=== PATIENT | male | born 1995 | race Asian ===

== ENCOUNTER 2021-01-03 08:14 | Outpatient (REF) | payer BC, SELFPAY ==
[2021-01-03 11:41] LABS: HIV AB/AG Nonreactive (Nonreactive); HIV Num 1 0.09 S/CO (0.00-0.99); Hepatitis B Surface Antigen Negative (Negative)
[2021-01-03 11:44] LABS: TSH reflex Free T4 1.95 uIU/mL (0.32-4.0)
[2021-01-03 11:45] LABS: Alanine Aminotransferase 23 U/L (0-40); Albumin Level 4.9 g/dL (3.5-5.0); Alkaline Phosphatase 43 U/L (39-117); Anion Gap 13 (12-20); Aspartate Amino Transferase 25 U/L (5-37); Blood Urea Nitrogen 13 mg/dL (9-16); Calcium 9.4 mg/dL (8.4-10.2); Carbon Dioxide 27 mmol/L (22-29); Chloride 104 mmol/L (96-108); Cholesterol 173 mg/dL; Estimated Glomerular Filt Rate > 60; Glucose Fasting 91 mg/dL (60-99); HDL Cholesterol 65 mg/dL; LDL Cholesterol Calculated 97 mg/dl; Potassium 4.4 mmol/L (3.3-5.1); Sodium 140 mmol/L (135-145); Total Protein 7.6 g/dL (6.5-8.0); Triglycerides 58 mg/dL
[2021-01-03 11:46] LABS: HBc Num1 0.09 S/CO (0.00-0.79); Hepatitis B Core Antibody Nonreactive (Nonreactive); ~Hepatitis B Surface Antibody NONREACTIVE (Nonreactive); ~Hepatitis C Antibody Nonreactive (Nonreactive)
[2021-01-04 09:02] LABS: Syphilis Screen Nonreactive (Nonreactive)
[2021-01-04 09:45] LABS: CT PCR NOT DETECTED (Not Detect.); NG PCR NOT DETECTED (Not Detect.)
== END 2021-01-03 08:15 | disposition home or self-care (01) ==
LOC: HO.WFDLDS 08:14
PROVIDERS: Visit Provider Family Medicine
DX: Z00.00 Encounter for general adult medical examination without abnormal findings (principal); Z11.3 Encounter for screening for infections with a predominantly sexual mode of transmission
CPT/HCPCS: 80053; 80061; 84443; 86704; 86706; 86780; 86803; 87340; 87389; 87491; 87591

== ENCOUNTER → 2021-02-28 13:49 | Outpatient (REF) | payer BC, SELFPAY ==
--- NOTE | 2021-02-28 14:01 | CA_ITS ---
Transthoracic Echocardiogram Patient (Last, First, Middle): Tom Luong, Gender: Male Date of : 1995 Age: 25 Procedure Date: 02/28/2021 Procedure Type: Transthoracic Echocardiogram Location: OP Height: 175.26 cm Weight: 63.5 kg BSA: 1.78 m2 Heart Rate: bpm BP: 119 / 64 mmHg Wind Technician: [email or web address] Referring MD: Ramesh Glass MD Symptoms: R01.1 - Cardiac murmur, unspecified Conclusions: - The left ventricular systolic function is normal. The visually estimated ejection fraction is between 60-65%. - No obvious valvular pathology seen on this study. Findings Left Ventricle Normal left ventricular cavity size. There is normal left ventricular wall thickness. The left ventricular systolic function is normal. The visually estimated ejection fraction is between 60-65%. There is no evidence of regional wall motion abnormalities. Diastolic function is normal for age. Right Ventricle Normal right ventricular cavity size and systolic function. Atria The left atrium is normal in size. The right atrium is normal in size. Aortic Valve There is a normal trileaflet aortic valve. There is no aortic valve stenosis. There is no aortic valve regurgitation. Mitral Valve The mitral valve appears normal. There is no mitral valve regurgitation. There is no mitral valve stenosis. Pulmonic Valve The pulmonic valve was not well visualized. Tricuspid Valve Normal tricuspid valve structure. There is trace tricuspid valve regurgitation. The pulmonary artery systolic pressure is normal. Great Vessels The aortic annulus, sinuses of valsalva, asc aorta, and aortic arch are normal in size. Venous The inferior vena cava is normal in size and collapses greater than 50% with inspiration. Pericardium/Pleural There is no evidence of pericardial effusion. Prior Study Comparison No prior study available for comparison. Recommendations, Care & Conclusions No obvious valvular pathology seen on this study. Measurements M-Mode Liner Measurements Normals - Women/Men AOV Cusps: 2.20 1.5-2.6 cm/m2 2D Linear Measurements IVSd: 0.64 0.6-0.9/0.6-1.0 cm LVIDd: 4.58 3.9-5.3/4.2-5.9 cm LVIDd Index: 2.57 2.4-3.2/2.2-3.1 cm/m2 LVIDs: 2.74 2.0-3.6 cm LVPWd: 0.64 0.7-1.1 cm Ao Root: 2.70 2.1-3.5 cm LA Diam: 1.90 2.7-3.8/3.0-4.0 cm LAIDs Index: 1.07 1.5-2.3 cm/m2 LV Mass: 108.72 67-162/88-224 g LV Mass Index: 61.08 43-95/49-115 g/m2 LVOT Diam: 2.00 3.0+(-)1.3 cm Mitral Valve MV Pk E: 1.05 MV PK A: 0.35 MV Decel Time: 234.00 E/A: 3.00 E'Lateral: 20.70 E'Medial: 16.40 E/E' Med: 6.40 E/E' Lat: 5.10 PHT: 68.00 MVA PHT: 3.24 Decel Barren: 4.48 Aortic Valve AoV Pk Wilberto: 1.17 AoV Pk Grad: 5.00 LVOT LVOT Pk Wilberto: 0.89 LVOT Mn Wilberto: 0.62 LVOT VTI: 0.17 LVOT Pk Grad: 3.00 LVOT Mn Grad: 2.00 LVOT Diam: 2.00 LVOT Area: 3.14 Diastolic Function MV Pk E: 1.05 MV Pk A: 0.35 E/A: 3.00 E'Medial: 16.40 E/E' Med: 6.40 E' Laterial: 20.70 E/E' Lat: 5.10 Tricuspid Valve TR Pk Wilberto: 2.49 TR Pk Grad: 25.00 RA Press: 3.00 RVSP: 28.00 Great Vessels Aorta Ao Root-2D: 2.70 2.0-3.7 cm Ao Asc: 2.20 2.1-3.4 cm Ao Arch: 2.00 Pulmonary Valve PV Pk Wilberto: 1.49 PV Min Wilberto: 1.20 Peak PV Grad: 9.00 PV Mn Grad: 7.00 Updated in Other Vendor System with Status of Final Yasmani Lopez MD electronically signed on 03/03/2021 2:10:58 PM with status of Final
== END ==
LOC: HO.CARD 13:49
PROVIDERS: PCP Family Medicine; Visit Provider Family Medicine
DX: R01.1 Cardiac murmur, unspecified (principal)
CPT/HCPCS: 93306